=== PATIENT | female | born 1955 | race Caucasian/White ===

== ENCOUNTER 2024-05-11 18:30 | Emergency (ER) | payer MEDICARE, OTHER, SELFPAY ==
[2024-05-11] VITALS (10 sets, daily range): BP systolic 102–121; BP diastolic 53–57; PULSE 88–115; RESP 12–21; TEMP 36.6–36.8; O2SAT 100
--- NOTE | 2024-05-11 18:45 | DI.RAD.S_ITS ---
PROCEDURE: XR CHEST 1V INDICATIONS: chest pain TECHNIQUE: One view of the chest was acquired. COMPARISON: [facility], CR, XR CHEST 1 VIEW, 03/01/2024, 12:54. FINDINGS: Surgical changes and devices: None. Lungs and pleura: Lungs are clear. No pleural effusions or pneumothorax. Mediastinum: Mediastinal contours appear normal. Heart size is normal. Bones and chest wall: No suspicious bony lesions. Overlying soft tissues appear unremarkable. IMPRESSION: No acute cardiopulmonary abnormality is seen. Dictated by: Albert Hawthorne M.D. on 05/11/2024 at 20:13 Approved by: Albert Hawthorne M.D. on 05/11/2024 at 20:14
--- NOTE | 2024-05-11 18:45 | EKG_ITS ---
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
--- NOTE | 2024-05-11 18:47 | ED.EXTPRO ---
HPI - Extremity Problem General Chief complaint: Extremity Problem,Nontraumatic Stated complaint: left arm/shoulder pain Time Seen by Provider: 05/11/24 18:31 Source: patient Mode of arrival: Ambulatory History of Present Illness HPI Narrative: 68-year-old female presents for left arm/shoulder pain. Patient was sitting at home when all of a sudden she felt significant pain shoot through her left shoulder all the way through her fingertips. She became very concerned as she was never had this happened before and called 911. Patient has recent history of perforated bowel during colonoscopy requiring ex lap and diverting colostomy. She has a wound VAC in place and sees [facility] General surgery for wound care. No medications taken prior to arrival. Patient was given 324 of aspirin and 1 nitroglycerin prior to arrival. These did not change the patient's pain. On arrival patient states that the pain in her shoulder is already abating Related Data Allergies Allergy/AdvReac Type Severity Reaction Status Date / Time latex [LATEX] Allergy Severe HIVES, Unverified 09/18/17 12:20 REDDNESS, SWELLING Penicillins [PENICILLINS] Allergy Severe HIVES Unverified 09/18/17 12:20 sulfamethoxazole Allergy Severe HIVES Unverified 09/18/17 12:20 [From SEPTRA] trimethoprim [From SEPTRA] Allergy Severe HIVES Unverified 09/18/17 12:20 ADHESIVES TAPE AdvReac Intermediate REDDNESS Uncoded 09/18/17 12:20 Patient History Social History Smoking Status: Never smoker Smoking Status: Never smoker alcohol intake frequency: other Substance Use Type: does not use Exam Initial Vital Signs Initial Vital Signs: Vital Signs Temperature 98 F 05/11/24 18:39 Pulse Rate 115 H 05/11/24 18:39 Respiratory Rate 17 05/11/24 18:39 Blood Pressure 121/56 L 05/11/24 18:39 Pulse Oximetry 100 05/11/24 18:39 Oxygen Delivery Method Room Air 05/11/24 18:39 Const: Awake, alert, frail, nontoxic appearing Cardiac: Tachycardia, regular rhythm RESP: unlabored, clear bilaterally, no wheezing GI: Soft, nontender, wound VAC in place, diverting colostomy in place with soft brown stool in bag MSK: Atraumatic, generalized tenderness to palpation along left deltoid and biceps Skin: Warm, Dry, no rashes Neuro: AO x3, CN II-XII grossly intact, moves all extremities Course Orders Ordered: ED Orders 05/11/24 18:45 XR chest 1V Stat EKG-12 Lead Stat 05/11/24 19:00 Complete Blood Count AUTO DIFF Stat Comprehensive Metabolic Panel Stat Lipase Stat Magnesium Stat NT-proBNP (BNP-Adult 18+) Stat PTT Partial Thromboplastin Juan C Stat Prothrombin Time INR Stat Troponin & CK Cardiac Panel Stat 05/11/24 20:55 Trop I [Troponin I] Stat Discontinued Medications Aspirin (Aspirin 81 Mg Chew Tab) 324 mg PO NOW ONE Stop: 05/11/24 18:46 Last Admin: 05/11/24 19:49 Dose: Not Given Documented By: HALLE Sodium Chloride (Normal Saline 0.9%) 1,000 mls @ 1,000 mls/hr IV BOLUS ONE Stop: 05/11/24 21:42 Last Infusion: 05/11/24 21:48 Dose: Infused Documented By: Admin: 05/11/24 20:46 Dose: 1,000 mls/hr Documented By: HALLE Vital Signs Vital signs: Vital Signs - 8 hr 05/11/24 18:39 05/11/24 18:41 05/11/24 19:00 Temperature 98 F Pulse Rate 115 H 109 H Respiratory Rate 17 17 Blood Pressure 121/56 L 102/57 L Pulse Oximetry 100 100 Oxygen Delivery Method Room Air 05/11/24 19:00 05/11/24 19:30 05/11/24 19:30 Temperature Pulse Rate 103 H 102 H Respiratory Rate 21 13 Blood Pressure 105/56 L Pulse Oximetry Oxygen Delivery Method 05/11/24 20:00 05/11/24 20:00 05/11/24 20:30 Temperature Pulse Rate 93 H 91 H Respiratory Rate 15 12 Blood Pressure 108/53 L Pulse Oximetry 100 100 Oxygen Delivery Method 05/11/24 20:30 05/11/24 21:00 05/11/24 21:01 Temperature Pulse Rate 88 Respiratory Rate Blood Pressure 109/55 L 102/54 L Pulse Oximetry 100 Oxygen Delivery Method 05/11/24 21:01 05/11/24 21:30 05/11/24 21:30 Temperature Pulse Rate 88 93 H Respiratory Rate 18 Blood Pressure 113/53 L Pulse Oximetry 100 100 Oxygen Delivery Method 05/11/24 22:17 Temperature 98.2 F Pulse Rate Respiratory Rate 20 Blood Pressure Pulse Oximetry Oxygen Delivery Method Room Air MDM - Extremity (Nontraumatic) Lab Data 05/11/24 19:00 05/11/24 19:00 Labs: Lab Results 05/11/24 05/11/24 Range/Units 19:00 20:55 WBC 9.4 (4.5-11.0) X10^3/uL RBC 3.39 L (4.0-5.2) X10^6/uL Hgb 9.4 L (12.0-16.0) g/dL Hct 28.6 L (36-46) % MCV 84.3 (80-100) fL MCH 27.8 (26-34) PG MCHC 33.0 (30-36) % RDW 16.5 H (11.6-14.8) % Plt Count 134 L (150-400) X10^3/uL Neut % (Auto) 70.3 (50-75) % Lymph % (Auto) 20.8 L (25-40) % [place] % (Auto) 6.6 (3-14) % Eos % (Auto) 1.8 L (2-4) % Baso % (Auto) 0.5 (0-2) % Neut # (Auto) 6600 (6143-9239) /uL Lymph # (Auto) 1900 (4976-7765) /uL [place] # (Auto) 600 (0-900) /uL Eos # (Auto) 200 (0-450) /uL Baso # (Auto) 0 (0-100) /uL PT 12.1 (9.4-12.5) SECONDS INR 1.1 (0.9-1.3) APTT 38 H (25.1-36.5) SECONDS Sodium 128 L (137-145) mmol/L Potassium 5.2 H (3.4-5.1) mmol/L Chloride 105 (98-107) mmol/L Carbon Dioxide 17 L (22-32) mmol/L BUN 39 H (7-17) mg/dL Creatinine 1.14 H (0.52-1.04) mg/dL Estimated GFR 53 L (>60) mL/min BUN/Creatinine Ratio 34.2 H (6-22) Glucose 137 H (80-110) mg/dL Calcium 9.0 (8.4-10.2) mg/dL Magnesium 1.5 L (1.6-2.3) mg/dL Total Bilirubin 0.6 (0.2-1.3) mg/dL AST 49 H (14-36) IU/L ALT 52 H (<35) IU/L Alkaline Phosphatase 401 H (38-126) U/L Total Creatine Kinase < 20 L (30-135) U/L Troponin I < 0.012 < 0.012 (0.01-0.034) ng/mL NT-Pro-B Natriuret Pep 44 (<125) pg/mL Total Protein 6.8 (6.3-8.2) g/dL Albumin 3.5 (3.5-5.0) g/dL Globulin 3.3 (1.7-4.1) g/dL Albumin/Globulin Ratio 1.1 (1.0-2.8) Lipase 164 (23-300) U/L Imaging Data Chest x-ray: Radiologist's Impression: PROCEDURE: XR CHEST 1V INDICATIONS: chest pain TECHNIQUE: One view of the chest was acquired. COMPARISON: [facility], , XR CHEST 1 VIEW, 03/01/2024, 12:54. FINDINGS: Surgical changes and devices: None. Lungs and pleura: Lungs are clear. No pleural effusions or pneumothorax. Mediastinum: Mediastinal contours appear normal. Heart size is normal. Bones and chest wall: No suspicious bony lesions. Overlying soft tissues appear unremarkable. IMPRESSION: No acute cardiopulmonary abnormality is seen. Dictated by: Albert Hawthorne M.D. on 05/11/2024 at 20:13 Approved by: Albert Hawthorne M.D. on 05/11/2024 at 20:14 ECG Data Attestation EKG: I personally reviewed and interpreted this ECG as follows: Prior ECG tracings: not available for review Interpretation: Normal sinus rhythm at 99 beats per minute. Normal MD. No STEMI MDM Narrative Medical decision making narrative: Chronically unwell appearing patient with left shoulder pain that began suddenly. Recent prolonged complicated surgeries after perforation of colon during colonoscopy. Patient is followed by General surgery Services for this complaint, abdomen is soft, nontender, wound VAC in place with no secondary signs of infection. Pain in shoulder is reproducible to palpation, located along the lateral aspect of the shoulder and humerus regions. Low suspicion for cardiac etiology at this time, however based on patient's medical history cardiac workup will be initiated. [facility] contacted for records. Laboratory work reviewed. WBC count 9.4, hemoglobin 9.4, platelet count 134, sodium 128, potassium 5.2, creatinine 1.14, magnesium 1.5, T bili 0.6, AST 49, ALT 52, alk phos for a 1, troponin undetectable x2. [facility] records reassessed, laboratory work is not significantly different than previous values obtained approximately 2 weeks ago. Patient did have a slight elevation in her creatinine, and [facility] record shows patient complaining of ostomy output at last visit. Could possibly be related to GI losses with new ostomy. Patient and at bedside informed of all lab and imaging findings. They were advised to continue to follow up with her PCP and surgeon to ensure that her lab work is closely monitored. Uncertain etiology of patient's shoulder pain, however unlikely to be ACS at this time. Discharge Plan Departure Patient Disposition: Home Clinical Impression: Acute pain of left shoulder Instructions: DI for Shoulder Pain Activity Restrictions/Additional Instructions: Your EKG and x-rays today did not show any obvious cause of your shoulder pain. This may be either muscular or a nerve pain based on your description. Your blood work today was overall very similar to the last results we have from [facility]. You did have a slight increase in your creatinine level, or kidney function. Make sure that you follow up with your primary care doctor for this. Drink lots of fluids and make sure that you stay hydrated. Monitor your ostomy output to make sure that you are not jumping too much into the ostomy bag. Referrals: Iveth Hitchcock PA-C [Primary Care Provider] - Stand Alone Forms: Patient Portal/API/Survey
[2024-05-11 19:11] LABS: Add Manual Diff / Slide Review NO; Basophils Absolute Auto 0 /uL (0-100); Basophils Percent Auto 0.5 % (0-2); Eosinophils Absolute Auto 200 /uL (0-450); Eosinophils Percent Auto 1.8 % (2-4); Hematocrit 28.6 % (36-46); Hemoglobin 9.4 g/dL (12.0-16.0); Lymphocytes Absolute Auto 1900 /uL (1100-4500); Lymphocytes Percent Auto 20.8 % (25-40); Mean Corpuscular Hemoglobin 27.8 PG (26-34); Mean Corpuscular Volume 84.3 fL (80-100); Monocytes Absolute Auto 600 /uL (0-900); Monocytes Percent Auto 6.6 % (3-14); Neutrophils Absolute Auto 6600 /uL (1500-7000); Neutrophils Percent Auto 70.3 % (50-75); Platelet Count 134 X10^3/uL (150-400); Red Blood Cell Count 3.39 X10^6/uL (4.0-5.2); Red Cell Distribution Width 16.5 % (11.6-14.8); White Blood Cell Count 9.4 X10^3/uL (4.5-11.0)
[2024-05-11 19:19] LABS: INR 1.1 (0.9-1.3); Prothrombin Time 12.1 SECONDS (9.4-12.5)
[2024-05-11 19:22] LABS: PTT Partial Thromboplastin Tim 38 SECONDS (25.1-36.5)
[2024-05-11 19:23] LABS: Alanine Aminotransferase 52 IU/L (<35); Albumin 3.5 g/dL (3.5-5.0); Albumin Globulin Ratio 1.1 (1.0-2.8); Alkaline Phosphatase 401 U/L (38-126); Aspartate Aminotransferase 49 IU/L (14-36); BUN Creatinine Ratio 34.2 (6-22); Bilirubin Total 0.6 mg/dL (0.2-1.3); Blood Urea Nitrogen 39 mg/dL (7-17); Carbon Dioxide 17 mmol/L (22-32); Chloride 105 mmol/L (98-107); Creatine Kinase < 20 U/L (30-135); Estimated Glomerular Filt Rate 53 mL/min (>60); Globulin 3.3 g/dL (1.7-4.1); Glucose 137 mg/dL (80-110); HEMOLYSIS < 15 (0-50); Lipase 164 U/L (23-300); Magnesium 1.5 mg/dL (1.6-2.3); Potassium 5.2 mmol/L (3.4-5.1); Sodium 128 mmol/L (137-145); Total Protein 6.8 g/dL (6.3-8.2)
[2024-05-11 19:35] LABS: NT-proBNP (BNP-Adult 18+) 44 pg/mL (<125); Troponin I < 0.012 ng/mL (0.01-0.034)
[2024-05-11] MEDS: SODIUM CHLORIDE 0.9% 1,000 ML 1000 ML IV (20:46)
[2024-05-11 21:32] LABS: Troponin I < 0.012 ng/mL (0.01-0.034)
== END 2024-05-11 22:18 | disposition home or self-care (01) ==
PROVIDERS: Emergency Provider Emergency Medicine; Family Provider Physician Assistant Medical; PCP Physician Assistant Medical
DX: M25.512 Pain in left shoulder (principal); R07.9 Chest pain, unspecified
CPT/HCPCS: 36415; 71045; 80053; 82550; 83690; 83735; 83880; 84484; 85025; 85610; 85730; 93005; 93010; 99284

== ENCOUNTER 2024-10-06 15:30 | Emergency (ER) | payer MEDICARE, OTHER, SELFPAY ==
[2024-10-06] VITALS (12 sets, daily range): BP systolic 156; BP diastolic 78; PULSE 71–86; RESP 15–18; TEMP 36.8; O2SAT 97–100; BMI 37.8
[2024-10-06 16:28] LABS: Add Manual Diff / Slide Review NO; Basophils Absolute Auto 0 /uL (0-100); Basophils Percent Auto 0.6 % (0-2); Eosinophils Absolute Auto 400 /uL (0-450); Eosinophils Percent Auto 6.1 % (2-4); Hematocrit 40.8 % (36-46); Hemoglobin 13.9 g/dL (12.0-16.0); Lymphocytes Absolute Auto 1500 /uL (1100-4500); Lymphocytes Percent Auto 22.7 % (25-40); Mean Corpuscular Hemoglobin 28.5 PG (26-34); Mean Corpuscular Volume 83.8 fL (80-100); Monocytes Absolute Auto 600 /uL (0-900); Monocytes Percent Auto 8.9 % (3-14); Neutrophils Absolute Auto 4100 /uL (1500-7000); Neutrophils Percent Auto 61.7 % (50-75); Platelet Count 191 X10^3/uL (150-400); Red Blood Cell Count 4.87 X10^6/uL (4.0-5.2); Red Cell Distribution Width 17.8 % (11.6-14.8); White Blood Cell Count 6.6 X10^3/uL (4.5-11.0)
[2024-10-06 16:30] LABS: Alanine Aminotransferase 133 IU/L (<35); Albumin 4.5 g/dL (3.5-5.0); Albumin Globulin Ratio 1.2 (1.0-2.8); Alkaline Phosphatase 463 U/L (38-126); Aspartate Aminotransferase 118 IU/L (14-36); BUN Creatinine Ratio 23.8 (6-22); Blood Urea Nitrogen 25 mg/dL (7-17); Calcium 9.6 mg/dL (8.4-10.2); Carbon Dioxide 24 mmol/L (22-32); Chloride 105 mmol/L (98-107); Estimated Glomerular Filt Rate 58 mL/min (>60); Globulin 3.9 g/dL (1.7-4.1); Glucose 102 mg/dL (70-99); HEMOLYSIS < 15 (0-50); Lipase 142 U/L (23-300); Potassium 4.4 mmol/L (3.4-5.1); Sodium 137 mmol/L (137-145); Total Protein 8.4 g/dL (6.3-8.2)
--- NOTE | 2024-10-06 16:39 | EKG_ITS ---
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
--- NOTE | 2024-10-06 18:22 | ED_ITS ---
HPI - Wound/Laceration General Chief Complaint: Wound/Laceration Stated Complaint: ostemy bag issue, infection Time Seen by Provider: 10/06/24 18:16 Source: patient and family Mode of arrival: Wheelchair History of Present Illness HPI narrative: 69-year-old female with history of colonic perforation at colonoscopy procedure March 2024, subsequent right-sided ostomy, with plan to later take down and reanastomosis hopefully later this year, has soreness and draining lesion adjacent to the ostomy site noted yesterday, increasing discomfort at that site. No blood or mucus in ostomy collection bad. No local instrumentation or trauma or injuries. No fevers or chills. No nausea or vomiting. Unremarkable ostomy contents, not loose or black or red or mucoid in appearance. Related Data Home Medications Medication Instructions Recorded Confirmed atorvastatin 10 mg tablet 10 mg PO DAILY 10/06/24 10/06/24 insulin glargine 100 unit/mL (3 See Rx Instructions .Route .COMPLEX 10/06/24 10/06/24 mL) subcutaneous pen (Lantus Solostar U-100 Insulin) insulin glargine-yfgn 100 unit/mL See Rx Instructions .Route .COMPLEX 10/06/24 10/06/24 (3 mL) subcutaneous pen losartan 50 mg tablet 50 mg PO DAILY 10/06/24 10/06/24 pen needle, diabetic 32 gauge x 10/06/24 10/06/24 1/4 pen needle, diabetic 32 gauge x 10/06/24 10/06/24 tramadol 50 mg tablet 50 - 100 mg PO 3XD PRN low back 10/06/24 10/06/24 pain Previous Rx's Medication Instructions Recorded clindamycin HCl 300 mg capsule 300 mg PO Q6H Dental infection 7 10/06/24 days #28 caps Allergies Allergy/AdvReac Type Severity Reaction Status Date / Time latex [LATEX] Allergy Severe HIVES, Unverified 09/18/17 12:20 REDDNESS, SWELLING Penicillins [PENICILLINS] Allergy Severe HIVES Unverified 09/18/17 12:20 sulfamethoxazole Allergy Severe HIVES Unverified 09/18/17 12:20 [From ] trimethoprim [From ] Allergy Severe HIVES Unverified 09/18/17 12:20 ADHESIVES TAPE AdvReac Intermediate REDDNESS Uncoded 09/18/17 12:20 Patient History Social History Smoking Status: Never smoker Smoking Status: Never smoker alcohol intake frequency: other Exam Narrative Exam Narrative: GENERAL: Well-developed patient, in mild distress. HEAD: Atraumatic. Normocephalic. EYES: Pupils equal round and reactive. Extraocular motions intact. No scleral icterus. No injection or drainage. ENT: Nose without bleeding, purulent drainage. Throat without erythema, tonsillar hypertrophy or exudate. Airway patent. NECK: Trachea midline. Non tender CARDIOVASCULAR: Regular rate and rhythm without murmurs, gallops, or rubs. RESPIRATORY: Clear to auscultation. Breath sounds equal bilaterally. No wheezes, rales, or rhonchi. GASTROINTESTINAL: Obese, right sided ostomy bag in place with liquid light brown stool without blood, bandage adjacent area. Family member at bedside shows photo from wound change showing a right lateral periosteum oral skin lesion she reports that was draining. EXTREMITIES: No edema or joint tenderness. BACK: Nontender without deformity or crepitance. No flank tenderness. NEURO: AOx3. Motor functions grossly nonfocal SKIN: No rash or erythema of visible areas Initial Vital Signs Initial Vital Signs: Vital Signs Temperature 98.3 F 10/06/24 15:42 Pulse Rate 80 10/06/24 15:42 Respiratory Rate 15 10/06/24 15:42 Blood Pressure 156/78 H 10/06/24 15:42 Pulse Oximetry 100 10/06/24 15:42 Oxygen Delivery Method Room Air 10/06/24 15:42 Course Orders Ordered: Discontinued Medications Clindamycin Phosphate (Cleocin) 900 mg in 50 mls @ 50 mls/hr IV NOW ONE Stop: 10/06/24 22:55 Last Infusion: 10/06/24 22:58 Dose: Infused Documented By: Admin: 10/06/24 22:01 Dose: 50 mls/hr Documented By: JESUS Lidocaine/Prilocaine (Lidocaine/Prilocaine 5 Gm) 5 gm TOP NOW ONE Stop: 10/06/24 22:38 Last Admin: 10/06/24 22:52 Dose: 5 gm Documented By: JESUS Ondansetron HCl (Ondansetron 4 Mg/2 Ml Inj) 4 mg IV NOW PRN PRN Reason: Nausea And Vomiting Ondansetron HCl (Ondansetron 4 Mg Odt) 4 mg PO NOW PRN PRN Reason: Nausea And Vomiting Vital Signs Vital signs: Vital Signs - 8 hr 10/07/24 00:03 Pulse Rate 71 Respiratory Rate 16 Blood Pressure 145/75 H Pulse Oximetry 99 Oxygen Delivery Method Room Air MDM - Wound/Laceration Lab Data Attestation: I reviewed the patient's lab results. Lab results narrative: White blood cell count 6600, hemoglobin 13.9, platelets adequate. BUN 25 with creatinine 1.05. Glucose 102. Serum CO2 24 normal. Electrolytes unremarkable. Alkaline phosphatase 463, AST 118, ALT 133, T bili normal. Lipase normal. 10/06/24 16:06 10/06/24 16:06 Labs: Lab Results 10/06/24 Range/Units 16:06 WBC 6.6 (4.5-11.0) X10^3/uL RBC 4.87 (4.0-5.2) X10^6/uL Hgb 13.9 (12.0-16.0) g/dL Hct 40.8 (36-46) % MCV 83.8 (80-100) fL MCH 28.5 (26-34) PG MCHC 34.0 (30-36) % RDW 17.8 H (11.6-14.8) % Plt Count 191 (150-400) X10^3/uL Neut % (Auto) 61.7 (50-75) % Lymph % (Auto) 22.7 L (25-40) % [place] % (Auto) 8.9 (3-14) % Eos % (Auto) 6.1 H (2-4) % Baso % (Auto) 0.6 (0-2) % Neut # (Auto) 4100 (2869-3098) /uL Lymph # (Auto) 1500 (8627-0708) /uL [place] # (Auto) 600 (0-900) /uL Eos # (Auto) 400 (0-450) /uL Baso # (Auto) 0 (0-100) /uL Sodium 137 (137-145) mmol/L Potassium 4.4 (3.4-5.1) mmol/L Chloride 105 (98-107) mmol/L Carbon Dioxide 24 (22-32) mmol/L BUN 25 H (7-17) mg/dL Creatinine 1.05 H (0.52-1.04) mg/dL Estimated GFR 58 L (>60) mL/min BUN/Creatinine Ratio 23.8 H (6-22) Glucose 102 H (70-99) mg/dL Calcium 9.6 (8.4-10.2) mg/dL Total Bilirubin 1.0 (0.2-1.3) mg/dL AST 118 H (14-36) IU/L ALT 133 H (<35) IU/L Alkaline Phosphatase 463 H (38-126) U/L Total Protein 8.4 H (6.3-8.2) g/dL Albumin 4.5 (3.5-5.0) g/dL Globulin 3.9 (1.7-4.1) g/dL Albumin/Globulin Ratio 1.2 (1.0-2.8) Lipase 142 (23-300) U/L ECG Data Attestation: I personally reviewed and interpreted this ECG as follows: Interpretation: Normal sinus rhythm with rate of 72. Incomplete right bundle-branch block pattern. ID [id number], QRS 98, QTC 438. MDM Narrative Medical decision making narrative: 69-year-old female with history of colonoscopy related perforation subsequent right colostomy awaiting future take down reanastomosis procedure, with 2 days duration right-sided parastomal drainage fluid. No fever on triage. Sirs screen negative. Colostomy bag with yellow-brown stool without obvious blood or mucus. Colostomy bag removed with new bag to be changed, at time removal wound observed, parastomal right lateral small opening, expressible clear fluid. Wound culture sent. GFR favorable. CT abdomen and pelvis ordered with IV contrast. CT abdomen and pelvis with IV contrast. Impressions: ?Right abdominal ostomy site with large parastomal hernia containing loops of small large bowel without signs of obstruction. Small collection of fluid and gas in the subcutaneous tissue just superior to the parastomal hernia with tract extending to the skin surface. Communication with bowels not definitely identified. Prominent intrahepatic and extrahepatic biliary ductal dilatation does not appear significantly change when compared to CT 03/01/2024. ? See radiology report. In text portion the fluid collection mentioned is of dimensions 2.6 x 1.0 x 1.8 cm. History of allergies to penicillins and Bactrim noted. We will give IV clindamycin. Small volume fluid collection seems to be draining, will contact surgery. Relayed information to the patient, she thinks that she was started with antibiotics for previous infection and is followed by surgery Dr. Munoz at [facility]. We will contact their surgeon on-call. [id number], case discussed with her surgeon Dr. Munoz at [facility], who is familiar with patient and her history of recurrent MRSA skin abscesses, hopefully going to do take down colostomy and reanastomosis later this year. Requests attempt at wound dilatation with a curved hemostat to open up the draining tract for now, agrees with IV clindamycin, can start with oral clindamycin, follow up with their wound clinic tomorrow, and with her in follow up. Curved hemostat placed into wound a few cm with dilation to open the wound, no significant flow of fluid. But wider orifice to help facilitate drainage. Tolerated well. We will send prescription for clindamycin to her pharmacy. Discharge Plan Departure Patient Disposition: Home Clinical Impression: Abscess of skin Instructions: DI for Wound Infection Activity Restrictions/Additional Instructions: History of right-sided ostomy, prior skin abscesses, prior treatment with ciprofloxacin/Flagyl antibiotics, now with a draining wound in the area of previous right-sided ostomy. CT imaging showed a very small fluid collection parastomal. Case was discussed with your surgeon Dr. Munoz who asked for a hemostat to be placed to slightly open the wound to allow better drainage, this was done after EMLA cream was applied. IV clindamycin initiated, you had history of allergy to penicillins and sulfa antibiotics. Oral clindamycin to be taken. Your surgeon advised follow up with wound care at [facility] tomorrow. Further follow up with your surgeon as planned. Return to this/nearest emergency department for any change worsening symptoms or any concerns prior. Prescriptions: New clindamycin HCl 300 mg capsule 300 mg PO Q6H 7 Days Qty: 28 0RF No Action losartan 50 mg tablet 50 mg PO DAILY atorvastatin 10 mg tablet 10 mg PO DAILY tramadol 50 mg tablet 50 - 100 mg PO 3XD PRN (Reason: low back pain) insulin glargine [Lantus Solostar U-100 Insulin] 100 unit/mL (3 mL) insulin pen See Rx Instructions .ROUTE .COMPLEX Patient Comments: [NO ORIGINAL SIG] Rx Instructions: 32 units in the AM, 12 units at bedtime (DME) pen needle, diabetic [BD Ultra-Fine Micro Pen Needle] 32 gauge x 1/4 needle MISCELLANEOUS Patient Comments: [NO ORIGINAL SIG] (DME) pen needle, diabetic [BD Malinda 2nd Gen Pen Needle] 32 gauge x needle MISCELLANEOUS QAM insulin glargine-yfgn 100 unit/mL (3 mL) insulin pen See Rx Instructions .ROUTE .COMPLEX Patient Comments: [NO ORIGINAL SIG] Rx Instructions: 6 units AC, and sliding scale Referrals: Miscellaneous,Doctor, MD [Primary Care Provider] - Stand Alone Forms: Patient Portal/API/Survey
--- NOTE | 2024-10-06 18:23 | DI.CT.S_ITS ---
PROCEDURE: CT ABDOMEN PELVIS W CON INDICATIONS: abd pain, ostomy site lesion/draining TECHNIQUE: After the administration of intravenous contrast, axial sections acquired from the lung bases to the pubic symphysis. Coronal and sagittal reformats were performed. For radiation dose reduction, the following was used: automated exposure control, adjustment of mA and/or kV according to patient size. COMPARISON: [facility], CT, CT ABDOMEN PELVIS WITH CONTRAST, 03/01/2024, 13:30. FINDINGS: Image quality: Diagnostic. Lower Chest: No significant findings. ABDOMEN: Liver: No solid mass. Gallbladder: Status post cholecystectomy. Biliary ducts: Prominent intrahepatic and extrahepatic biliary duct dilatation does not appear significantly changed when compared to the prior CT from 03/01/2024. Pancreas: No ductal dilation. Spleen: Size is within normal limits. Adrenal Glands: No adrenal nodules. Kidneys and Ureters: No hydronephrosis. No solid mass. No complex renal cystic lesion which requires follow up. Stomach and Bowel: Right abdominal ostomy is seen with a large peristomal hernia containing fat and segments of small and large bowel. No upstream bowel dilation to suggest obstruction. The colon is underdistended and not well evaluated. Multiple diverticular present without surrounding inflammatory changes. Peritoneum: No abnormal intraperitoneal fluid. No free air. Ventral Wall: Subcutaneous collection of fluid and gas is seen superior to the peristomal hernia measuring up to 2.6 x 1.0 x 1.8 cm. There appears to be a tract extending to the skin surface. No definite communication with bowel is seen. Small fat containing periumbilical ventral hernia. Abdominal Nodes: No retroperitoneal or mesenteric adenopathy by size criteria. Vessels: Aorta and inferior vena cava are normal in size. PELVIS: Pelvic Organs: Status post hysterectomy. Bladder: No bladder wall thickening, accounting for underdistention. Pelvic Nodes: No enlarged lymph nodes. Miscellaneous: No inguinal hernias are seen. Bones: No aggressive osseous abnormality. IMPRESSION: 1. Right abdominal ostomy site with large peristomal hernia containing loops of small large bowel without signs of bowel obstruction. 2. Small collection of fluid and gas in the subcutaneous tissues just superior to the peristomal hernia with tract extending to the skin surface. Communication with bowel is not definitely identified. 3. Prominent intrahepatic and extrahepatic biliary ductal dilatation does not appear significantly changed when compared to the prior CT from 03/01/2024. Approved by: Cornelius Jiménez M.D. on 10/06/2024 at 19:26
--- NOTE | 2024-10-06 20:37 | PC.WOUNDPHOT ---
Wound by ostomy is 1cm by 2 cm, weeping serosanguinous fluid, the skin around the wound is hard, tender, and reddened. Fluid from wound is expressed and wound culture has been collected and sent to lab. Dr Hernandez at bedside to assess wound
[2024-10-06] MEDS: CLINDAMYCIN 900 MG/50 ML PIGGYBACK 50 MG IV (22:01)
[2024-10-06] MEDS: LIDOCAINE/PRILOCAINE 5 GM TOP (22:52)
[2024-10-07 00:03] VITALS: BP 145/75; PULSE 71; RESP 16; O2SAT 99
== END 2024-10-07 00:04 | disposition home or self-care (01) ==
PROVIDERS: Family Medicine; Emergency Provider Emergency Medicine
DX: L02.211 Cutaneous abscess of abdominal wall (principal); Z93.3 Colostomy status; Z88.0 Allergy status to penicillin; Z86.14 Personal history of Methicillin resistant Staphylococcus aureus infection
CPT/HCPCS: 36415; 74177; 80053; 81003; 83690; 85025; 93005; 96365; 99284; Q9967

== ENCOUNTER → 2024-10-19 10:21 | Outpatient (CLI) | payer MEDICARE, OTHER, SELFPAY ==
--- NOTE | 2024-10-19 10:24 | DI.RAD.S_ITS ---
PROCEDURE: FL Gastrografin ENEMA INDICATIONS: Prior history of perforation of colon, evaluation of sigmoid colon for ileostomy take down. COMPARISON: None. FINDINGS: Limited evaluation with Gastrografin for evaluation of possible sigmoid leak. Gastrografin contrast was introduced by gravity the rectum. There is no evidence of leak of contrast. Numerous diverticula are noted throughout the sigmoid colon. IMPRESSION: No evidence of extravasation of contrast or perforation. Dictated by: Adolph Gregory M.D. on 10/20/2024 at 8:34 Approved by: Adolph Gregory M.D. on 10/20/2024 at 8:38
== END ==
LOC: RAD 10:22
PROVIDERS: Referring Provider Surgery; Visit Provider Surgery
DX: Z43.2 Encounter for attention to ileostomy (principal); K63.1 Perforation of intestine (nontraumatic)
CPT/HCPCS: 74270

== ENCOUNTER → 2024-11-20 14:21 | Outpatient (CLI) | payer MEDICARE, OTHER, SELFPAY ==
--- NOTE | 2024-11-20 14:30 | DI.NM.S_ITS ---
PROCEDURE: NM GEORGI PERF SPECT R&S PHARM Rest and pharmacological stress myocardial perfusion SPECT with gated imaging and ejection fraction RADIOPHARMACEUTICAL: 25.8 mCi Tc-99m tetrafosmin IV at rest and 25.5 mCi Tc-99m tetrafosmin IV at peak effect of pharmacological stress. [id number] was performed. INDICATIONS: chest pain TECHNIQUE: Radiopharmaceutical was injected at peak stress test, and also at rest. SPECT images were obtained. SPECT myocardial perfusion images were displayed in short axis, horizontal long axis, and vertical long axis views. Gated images were reviewed using Tanium software. COMPARISON: None. CARDIAC STRESS: A pharmacologic stress test was performed under the supervision of an attending staff, using an infusion of lexiscan 0.4mg IV X1. Hemodynamic data: There is normal blood pressure and heart rate response to pharmacologic stress. Symptoms: The patient denied anginal chest pain. Aminophylline: none EKG: No diagnostic changes of ischemia; no ectopy. FINDINGS: Raw data: There is good myocardial uptake of radiotracer. No significant motion artifacts. Left ventricle function: Gated images demonstrate normal left ventricular wall thickening. No segmental wall motion abnormalities. No transient ischemic dilation; TID is 0.51 (normal less than 1.3). Left ventricle resting end diastolic volume is 80 mL. Left ventricle stress ejection fraction is 84%; normal range is above 45%. Myocardial perfusion: There is a severe fixed inferior wall defect that is consistent with prior non-transmural infarction but artifact can't be excluded as prone imaging no obtained due to limited immobility. No significant ischemia. SSS 13, SRS 13. IMPRESSION: Abnormal pharm nuclear stress test with prior infarction and no significant ischemia. 1) There is a severe fixed inferior wall defect that is consistent with prior non-transmural infarction but artifact can't be excluded as prone imaging no obtained due to limited immobility. No significant ischemia. SSS 13, SRS 13. 2) Normal left ventricular size, wall motion, and systolic function (EF post stress 84%). 3) No angina during the study. 4) No diagnostic ST changes with lexiscan. 5) No prior nuclear stress test available for comparison. Dictated by: Fan Lorenzo MD on 11/27/2024 at 14:28 Approved by: Fan Lorenzo MD on 11/27/2024 at 14:31
== END ==
LOC: NUCM 14:23
PROVIDERS: PCP Physician Assistant Medical; Referring Provider Physician Assistant Medical; Visit Provider Physician Assistant Medical
DX: I25.2 Old myocardial infarction (principal); R07.9 Chest pain, unspecified; R94.39 Abnormal result of other cardiovascular function study
CPT/HCPCS: 78452; 93017; A9502; J2785